=== PATIENT | female | born 1960 | race Caucasian/White ===

== ENCOUNTER 2022-04-27 09:16 | Day surgery (SDC) | payer OTHER ==
[~2022-04-27] VITALS: Ht 165.1 cm; Wt 77.1 kg
[2022-04-27] MEDS ORDERED: MIDAZOLAM 5 MG/5 ML VIAL ONE (10:06)
[2022-04-27] MEDS ORDERED: diphenhydrAMINE 50 MG/ML VIAL ONE (10:06)
[2022-04-27] MEDS ORDERED: LIDOCAINE 2% 100 MG/5 ML UJET TP ONE (10:06)
[2022-04-27] MEDS ORDERED: fentaNYL citrate 0.05 MG/ML VIAL ONE (10:06)
[2022-04-27] MEDS ORDERED: ACETAMINOPHEN EXTRA STRENGTH 500 MG TAB ONE (12:03)
[2022-04-27] MEDS ORDERED: ACETAMINOPHEN EXTRA STRENGTH 500 MG TAB PO SCH (12:03)
[2022-04-27] MEDS ORDERED: MIDAZOLAM 2 MG/2 ML VIAL IVP ONE (14:45)
[2022-04-27] MEDS ORDERED: fentaNYL citrate 0.05 MG/ML VIAL IVP ONE (14:45)
== END 2022-04-27 12:27 | disposition home or self-care (01) ==
LOC: MMU 09:16 → MDS 09:16
PROVIDERS: ATTEND Internal Medicine Gastroenterology
DX: Z12.11 Encounter for screening for malignant neoplasm of colon (principal); D12.2 Benign neoplasm of ascending colon; K21.9 Gastro-esophageal reflux disease without esophagitis; K21.00 Gastro-esophageal reflux disease with esophagitis, without bleeding; Z80.0 Family history of malignant neoplasm of digestive organs; Z90.49 Acquired absence of other specified parts of digestive tract; E78.00 Pure hypercholesterolemia, unspecified; Z98.890 Other specified postprocedural states; Z20.822 Contact with and (suspected) exposure to COVID-19
CPT/HCPCS: 43239; 45385; 87426; J2250; J3010; J1200